=== PATIENT | male | born 1980 | race Caucasian/White ===

== ENCOUNTER 2020-10-04 17:26 | Emergency (ER) | payer SELFPAY ==
--- NOTE | 2020-10-04 17:51 | ED.EAR ---
HPI - Ear Problem General Chief complaint: Dental/Oral Stated complaint: ear pain Time Seen by Provider: 10/04/20 18:03 History of Present Illness HPI Narrative: patient presents with left sided ear pain or a bad tooth on his left side. patient denies any other complaints MD Complaint: ear pain Location: left ear Severity: mild Exacerbating factors: nothing Related Data Home Medications Medication Instructions Recorded Confirmed hydrocodone-acetaminophen 5 tablet PO PRN 10/04/20 10/04/20 quetiapine 100 mg PO DAILY 10/04/20 10/04/20 quetiapine 400 mg PO DAILY 10/04/20 10/04/20 tizanidine 4 mg PO HS 10/04/20 10/04/20 trazodone 50 mg PO HS 10/04/20 10/04/20 Allergies Allergy/AdvReac Type Severity Reaction Status Date / Time No Known Allergies Allergy Verified 10/04/20 17:43 Review of Systems Review of Systems: Narrative: CONSTITUTIONAL: Denies fever, chills, or sweats. EYES: Denies visual changes, redness, or discharge. ENT: Denies rhinorrhea, congestion, sore throat, or otalgia. CARDIOVASCULAR: Denies chest pain, palpitations, or edema. RESPIRATORY: Denies cough or dyspnea. GASTROINTESTINAL: Denies abdominal pain, nausea, vomiting, or diarrhea. GENITOURINARY: Denies dysuria or hematuria. SKIN: Denies rash or itching. MUSCULOSKELETAL: Denies back pain, joint pain, or myalgia. NEUROLOGIC: Denies headache, numbness, or weakness. PSYCHIATRIC: Denies anxiety or depression. Allergic/Immunologic: Comments: At time of signature, agree with nursing past medical, surgical, social and family history. There is no relevant family history pertinent to the presenting complaint PMFSH Social History Social History Gender identity (if verbalized by the patient): Male Exam Narrative: Exam Narrative: GENERAL: Well-appearing, well-nourished, and in no acute distress. HEAD: Normocephalic, atraumatic. EYES: PERRLA and EOMI. ENT: Nares clear, no rhinorrhea or epistaxis. Mucous membrane NO FEVER. NO JAW SWELLING. NO NECK SWELLING. NO LIMITATION WITH SPEAKING OR SWALLOWING. HAS A HISTORY OF DENTAL CARIES. HAS NOT SEEN A DENTIST RECENTLY. NECK: Supple. CHEST: Clear to auscultation. No respiratory distress. HEART: Regular rate and rhythm. No murmur heard. Normal peripheral pulses. ABDOMEN: Soft, nontender, nondistended, normal active bowel sounds. EXTREMITIES: Normal range of motion. No edema. SKIN: Warm, dry, no rash. NEURO: No focal deficits. Alert and oriented x3. [place] Coma Scale Eye Opening: Spontaneous 4 [place] Coma Scale Motor: Obeys Commands 6 [place] Coma Scale Verbal: Oriented 5 [place] Coma Scale Total 15 Const: General: no acute distress Orientation/consciousness: patient oriented x3 HENMT: Teeth and gingiva: other (broken tooth 17) Course Vital Signs Vital signs: Vital Signs Temperature 36.1 C L 10/04/20 17:52 Pulse Rate 100 10/04/20 17:52 Respiratory Rate 16 10/04/20 17:52 Blood Pressure 156/117 H 10/04/20 17:52 Pulse Oximetry 98 10/04/20 17:52 Temperature 36.1 C L 10/04/20 17:52 Pulse Rate 100 10/04/20 17:52 Respiratory Rate 16 10/04/20 17:52 Blood Pressure 156/117 H 10/04/20 17:52 Pulse Oximetry 98 10/04/20 17:52 Please SO schedule a followup visit with your personal physician for further evaluation and treatment. Including recheck and discussion of your blood pressure. If your symptoms persist, change or worsen significantly before you can contact your personal physician then please, without delay, go to the emergency department for further evaluation Patient states that he has a history of high blood pressure but has not been taking his medication for over the past year. Discussed signs and symptoms of elevated blood pressure enforced need to follow-up with primary care provider for further evaluation treatment 150/98 Medical Decision Making Vital Signs Vital Signs: Vital Signs Temperature 36.1 C L 10/04/20 17:52 Pulse Rate 100 10/04/20 17:52 Respirat
[2020-10-04 17:52] VITALS: BP 156/117; PULSE 100; RESP 16; TEMP 36.1; O2SAT 98
== END 2020-10-04 18:06 | disposition home or self-care (01) ==
PROVIDERS: Emergency Provider Nurse Practitioner Family; PCP Family Medicine
DX: K02.9 Dental caries, unspecified (principal); I10 Essential (primary) hypertension; F31.9 Bipolar disorder, unspecified
CPT/HCPCS: 99213; G0463

== ENCOUNTER 2025-04-12 08:58 | Emergency (ER) | payer OTHER, SELFPAY ==
[2025-04-12 09:04] VITALS: BP 150/103; PULSE 98; RESP 20; TEMP 36.9; O2SAT 100
--- NOTE | 2025-04-12 09:39 | ED.BACK ---
HPI - Back Pain/Injury General Chief Complaint: Back Pain/Injury Stated Complaint: Back Pain Time Seen by Provider: 04/12/25 09:15 Source: patient and RN notes reviewed Mode of arrival: ambulatory Limitations: no limitations History of Present Illness HPI Narrative: 44-year-old male patient presents Express Care complaining of right low back pain approximately 4 days. Patient reports a history of chronic back problems, he was raking leaves of his yd when he felt something pop in his right lower back followed by pain. Patient says the pain is worse with movement, recent 3/10 at rest, her rates it a 9/10 when nurse movement. Patient denies any radiating pain. Patient denies any numbness or tingling to his groin, loss of bowel or bladder function, leg weakness, or any other symptoms. Patient has been taking ibuprofen without relief. Related Data Home Medications ?Medication ?Instructions ?Recorded ?Confirmed ?Last Taken ?Type quetiapine 400 mg tablet,extended 400 mg PO DAILY 10/04/20 10/31/23 Unknown History release 24 hr trazodone 50 mg tablet 50 mg PO HS 10/04/20 10/31/23 Unknown History quetiapine 150 mg tablet,extended 150 mg PO QHS 11/11/20 10/31/23 Unknown History release 24 hr Allergies Allergy/AdvReac Type Severity Reaction Status Date / Time No Known Allergies Allergy Verified 04/12/25 09:19 Review of Systems Review of Systems: CONSTITUTIONAL: Denies fever, chills, or sweats. EYES: Denies visual changes, redness, or discharge. ENT: Denies rhinorrhea, congestion, sore throat, or otalgia. CARDIOVASCULAR: Denies chest pain, palpitations, or edema. RESPIRATORY: Denies cough or dyspnea. GASTROINTESTINAL: Denies abdominal pain, nausea, vomiting, or diarrhea. GENITOURINARY: Denies dysuria or hematuria. SKIN: Denies rash or itching. MUSCULOSKELETAL: Positive for back pain. Negative for joint pain, or myalgia. NEUROLOGIC: Denies headache, numbness, saddle anesthesia, loss of bowel or bladder function, or weakness. PSYCHIATRIC: Denies anxiety or depression. All other systems reviewed are negative, except as documented in HPI. [facility] Past Medical History Medical History HTN (hypertension), benign Chronic back pain Mood disorder Family History Family History Father Hypertension Family history of elevated blood lipids Social History Social History Smoking status: Current every day smoker Tobacco type: e-cigarettes/vaping Second hand tobacco smoke exposure: No Additional smoking assessment comments: currently vapes Alcohol intake: never Substance use: never Substance use type: does not use Lack of Transportation: No Lack of Food: Never True Current Housing: I Have Housing Concerned About Future Housing: No Difficulty Paying Gas/Electric Bills: No Difficulty Paying for Meds: No Currently Unemployed: No Education: Associate Degree Difficulty w/ Childcare or Family Care: No Living arrangements: with family Occupation/Education: occupation Gender identity (if verbalized by the patient): Male Agree to blood products: Yes Comments At the time of my signature, I reviewed and agree with the nursing past medical, surgical, social, and family history. There is no relevant family history pertinent to the patient complaint. Exam Narrative: GENERAL: This is a well-nourished, well-developed adult, in no apparent distress. They are non ill-appearing, nontoxic appearing. HEAD: normocephalic, atraumatic. EYES: Sclera clear/white. Conjunctiva normal. Vision is grossly intact. Extraocular movements intact EARS: External ears normal, Hearing grossly intact. NOSE: External nose normal THROAT: Mucous membranes moist, NECK: Neck supple, n CARDIOVASCULAR: Regular rate and rhythm RESPIRATORY: Respiratory rate normal, respiratory effort nonlabored, no respiratory distress SKIN: warm, Dry, intact with no suspicious lesions or rash, good texture and turgor. NEURO: awake, alert, and oriented to person, place and time. There were no obvious focal neurologic abnormalities. EXTREMITIES: No joint tenderness, effusion, or edema noted. BACK: Right lumbar double back operator to palpate. No CVA tenderness. No cervical, thoracic, lumbar point tenderness, crepitus, or step-offs. Course Course Emergency Course: Portions of this record may have been created with voice recognition software Level of Care: Express Care Visit Vital Signs Vital signs: Vital Signs Temperature 98.4 F 04/12/25 09:04 Pulse Rate 98 04/12/25 09:04 Respiratory Rate 20 04/12/25 09:04 Blood Pressure 150/103 H 04/12/25 09:04 Pulse Oximetry 100 04/12/25 09:04 Oxygen Delivery Room Air 04/12/25 09:04 Temperature 98.4 F 04/12/25 09:04 Pulse Rate 98 04/12/25 09:04 Respiratory Rate 20 04/12/25 09:04 Blood Pressure 150/103 H 04/12/25 09:04 Pulse Oximetry 100 04/12/25 09:04 Oxygen Delivery Room Air 04/12/25 09:04 Reviewed MDM - Back Pain/Injury MDM Narrative Medical decision making narrative: Patient likely has a lumbar strain. Will give him a course of prednisone along with a muscle relaxer. Discussed physical exam findings. Advised supportive measures and signs/symptoms to go to the ER. Pt is appropriate for outpt treatment and f/u. Differential Diagnosis Differential diagnosis: Likely lumbar radiculopathy, sciatica and strain of lumbar region Critical Care Time Critical Care Time Critical Care Time: No Discharge Plan Discharge Clinical Impression: Strain of lumbar region Qualifiers: Encounter type: initial encounter Qualified Code(s): S39.012A - Strain of muscle, fascia and tendon of lower back, initial encounter Patient Disposition: Home Condition: Stable Instructions: Low Back Strain (ED), Lower Back Exercises (ED) Additional Instructions: Take the muscle relaxer as directed. Do not drive or operate heavy machine, or work while taking the medication as it can make you drowsy. Use [id number] lidocaine patches as directed on the packaging. Take prednisone as directed. You may take ibuprofen 600 mg to 800 mg every 6-8 hours. Do not exceed more than 800 mg of ibuprofen per dose. Do not exceed more than 3200 mg ibuprofen in a day. You may take up to 1000 mg Tylenol every 6-8 hours. Do not exceed 1000 mg per dose, do exceed more than 4000 mg of Tylenol in a day. Please follow-up with your primary care provider if pain persist Rest. Avoid pushing, pulling, lifting --running or excessive walking-- or anything that worsens the symptoms You may try stretching your lower back or doing spinal decompression to help with symptoms. Go to the emergency department if you develop any numbness or tingling to your groin, weakness in your legs, or any loss of bowel or bladder function. Patient Language: Armenian Prescriptions: New prednisone 20 mg tablet 40 mg PO DAILY 5 Days Qty: 10 0RF methocarbamol 750 mg tablet 750 mg PO TID Qty: 12 0RF No Action trazodone 50 mg Tablet 50 mg PO HS quetiapine 400 mg tablet extended release 24 hr 400 mg PO DAILY quetiapine 150 mg tablet extended release 24 hr 150 mg PO QHS lisinopril-hydrochlorothiazide 10-12.5 mg tablet 1 tablet PO DAILY Qty: 90 1RF atenolol 100 mg tablet 100 mg PO DAILY Qty: 90 1RF omeprazole 20 mg capsule,delayed release(DR/EC) 20 mg PO DAILY Qty: 90 1RF Follow-up/Referrals: PHYSICIAN,TRAP OPERATOR [Primary Care Provider, Internal Medicine] Stand Alone Forms: Work/School Release IP Time of Disposition: 09:35
== END 2025-04-12 09:40 | disposition home or self-care (01) ==
DX: S39.012A Strain of muscle, fascia and tendon of lower back, initial encounter (principal); X50.3XXA Overexertion from repetitive movements, initial encounter; Y93.H1 Activity, digging, shoveling and raking; F17.290 Nicotine dependence, other tobacco product, uncomplicated; I10 Essential (primary) hypertension; F39 Unspecified mood [affective] disorder
CPT/HCPCS: 99213; G0463

== ENCOUNTER 2025-05-03 08:03 | Emergency (ER) | payer OTHER, SELFPAY ==
--- NOTE | ~2025-05-03 | XR_ITS ---
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 LLL COMPARISON: No comparisons available. Technique: 2 views obtained. Findings: Minimal left lower lobe infiltrate otherwise the lungs are clear. No pneumothorax. Heart is normal size. Mediastinal and hilar contours are within normal limits. Bony thorax no acute abnormality. Impression: Small left lower lobe pneumonia Reviewed, dictated and finalized at location P. [employer] EXCHANGE ADMINISTRATOR Impression: Small left lower lobe pneumonia
[2025-05-03 08:10] VITALS: BP 148/97; PULSE 78; RESP 20; TEMP 36.9; O2SAT 99
--- NOTE | 2025-05-03 08:11 | ECG_ITS ---
Test Date: 2025-05-03 08:18:10 Measurements Intervals [place] Rate: 74 P: 51 CO: 169 QRS: 1 QRSD: 94 T: 44 QT: 365 QTc: 407 Interpretive Statements SINUS RHYTHM BASELINE ARTIFACT- I, III, AVL, AVF, V6 NORMAL ECG No previous ECG available for comparison Electronically Signed On 05-03-2025 08:28:49 HR COORDINATOR by Berny Turpin D.O.
--- NOTE | 2025-05-03 08:20 | ED_ITS ---
HPI - Chest Pain General Chief Complaint: Chest Pain Stated Complaint: Chest Pain Time Seen by Provider: 05/03/25 08:20 Source: patient and RN notes reviewed Mode of arrival: ambulatory Limitations: no limitations History of Present Illness HPI narrative: 44-year-old male patient presents to the [facility] complaining chest pain that started 4 days ago. Patient said it started while he was at a cheerleading competition for his daughter. Patient said it occurred suddenly feels the left lower chest associated with shortness of breath. Patient says the pain is worse when he takes a deep breath or when he coughs. Patient denies any fevers, body aches, chills, nausea vomiting, diarrhea, difficulty breathing, abdominal pain, or any other symptoms. Patient reports a history of pneumothorax all on the left side he says. Patient said he never required a chest tube for it. Patient continues to vape. Patient denies any heart history. Patient does have a history of hypertension. Patient says 2 weeks ago he did have an upper respiratory infection and a cough has resolved since. Related Data Home Medications ?Medication ?Instructions ?Recorded ?Confirmed ?Last Taken ?Type quetiapine 400 mg tablet,extended 400 mg PO DAILY 09/2410/31/23 Unknown History release 24 hr trazodone 50 mg tablet 50 mg PO HS 10/04/20 4 Unknown History Allergies Allergy/AdvReac Type Severity Reaction Status Date / Time No Known Allergies Allergy Verified 05/03/25 08:26 Review of Systems Review of Systems: CONSTITUTIONAL: Denies fever, chills, or sweats. EYES: Denies visual changes, redness, or discharge. ENT: Denies rhinorrhea, congestion, sore throat, or otalgia. CARDIOVASCULAR: Positive for chest pain. Negative for dizziness, lightheadedness, Palpitations, or edema. RESPIRATORY: Denies cough. Positive for dyspnea and pain with inspiration. GASTROINTESTINAL: Denies abdominal pain, nausea, vomiting, or diarrhea. GENITOURINARY: Denies dysuria or hematuria. SKIN: Denies rash or itching. MUSCULOSKELETAL: Denies back pain, joint pain, or myalgia. NEUROLOGIC: Denies headache, numbness, or weakness. PSYCHIATRIC: Denies anxiety or depression. All other systems reviewed are negative, except as documented in HPI. [facility] Past Medical History Medical History HTN (hypertension), benign Chronic back pain Mood disorder Family History Family History Father Hypertension Family history of elevated blood lipids Social History Social History Smoking status: Current every day smoker Tobacco type: e-cigarettes/vaping Second hand tobacco smoke exposure: No Additional smoking assessment comments: currently vapes Alcohol intake: never Substance use: never Substance use type: does not use Lack of Transportation: No Lack of Food: Never True Current Housing: I Have Housing Concerned About Future Housing: No Difficulty Paying Gas/Electric Bills: No Difficulty Paying for Meds: No Currently Unemployed: No Education: Associate Degree Difficulty w/ Childcare or Family Care: No Living arrangements: with family Occupation/Education: occupation Gender identity (if verbalized by the patient): Male Agree to blood products: Yes Comments At the time of my signature, I reviewed and agree with the nursing past medical, surgical, social, and family history. There is no relevant family history pertinent to the patient complaint. Exam Narrative: GENERAL: This is a well-nourished, well-developed adult, in no apparent distress. They are non ill-appearing, nontoxic appearing. HEAD: normocephalic, atraumatic. EYES: Sclera clear/white. Conjunctiva normal. Vision is grossly intact. Extraocular movements intact EARS: External ears normal, Hearing grossly intact. NOSE: External nose normal THROAT: Mucous membranes moist, NECK: Neck supple, non-tender without lymphadenopathy, masses or thyromegaly. CARDIOVASCULAR: Regular rate and rhythm without murmurs, gallops, or rubs. RESPIRATORY: Left lower lobe diminished. No wheezes, rales, or rhonchi. Respiratory rate normal, respiratory effort nonlabored, no respiratory distress SKIN: warm, Dry, intact with no suspicious lesions or rash, good texture and turgor. NEURO: awake, alert, and oriented to person, place and time. There were no obvious focal neurologic abnormalities. EXTREMITIES: No joint tenderness, effusion, or edema noted. BACK: Nontender without deformity. Course Course Level of Care: Express Care Visit Vital Signs Vital signs: Vital Signs Temperature 98.4 F 05/03/25 08:10 Pulse Rate 78 05/03/25 08:10 Respiratory Rate 20 05/03/25 08:10 Blood Pressure 148/97 H 05/03/25 08:10 Pulse Oximetry 99 05/03/25 08:10 Oxygen Delivery Room Air 05/03/25 08:10 Temperature 98.4 F 05/03/25 08:10 Pulse Rate 78 05/03/25 08:10 Respiratory Rate 20 05/03/25 08:10 Blood Pressure 148/97 H 05/03/25 08:10 Pulse Oximetry 99 05/03/25 08:10 Oxygen Delivery Room Air 05/03/25 08:10 MDM MDM Narrative Medical decision making narrative: EKG sinus rhythm without ischemic findings, nonspecific T-wave changes. [place] heart score 1. Low suspicion for CAD. Given patient's history and exam findings will obtain chest x-ray. Chest x-ray reveals left lower lobe pneumonia, no pneumothorax or any other acute cardiopulmonary findings. Patient nontoxic appearing, no apparent distress, afebrile. Will send him home on doxycycline. Discussed physical exam findings. Advised supportive measures and signs/symptoms to go to the ER. Pt is appropriate for outpt treatment and f/u. Differential Diagnosis Differential Diagnosis: Pneumothorax, ACS, pneumonia, pleurisy, chest wall pain, stable angina Imaging Data Radiologist's impression: ITS Impressions Chest X-Ray 05/03/25 08:48 Impression: Small left lower lobe pneumonia ECG Data EKG #1: Attestation: I personally reviewed and interpreted this ECG as follows: ECG completion date: 05/03/25 ECG completion time: 08:18 Prior ECG tracings: not available for review Interpretation: non specific t wave changes, normal rate, sinus rhythm, no ectopy, no ST changes, normal QRS, normal QT and NL axis Critical Care Time Critical Care Time Critical Care Time: No Discharge Plan Discharge Clinical Impression: Pneumonia Qualifiers: Pneumonia type: due to unspecified organism Laterality: left Lung location: lower lobe of lung Qualified Code(s): J18.9 - Pneumonia, unspecified organism Patient Disposition: Home Condition: Stable Instructions: Antibiotic Form, Pneumonia (ED) Additional Instructions: Chest x-ray shows left lower lobe pneumonia. No other acute cardiopulmonary findings. Take antibiotics as directed until complete. eat small frequent meals. Get lots of rest and drink fluids. Alternate Tylenol and ibuprofen for pain/fever as needed. Follow instructions on the bottle. Call your Primary Care Doctor and make a follow-up appointment in 3 to 5 days. Go to the ER for worsening symptoms, chest pains, difficulty breathing, weakness, fevers, or any serious concerns. Patient Language: Azerbaijani Prescriptions: New doxycycline monohydrate 100 mg capsule 100 mg PO BID 5 Days Qty: 10 0RF No Action trazodone 50 mg Tablet 50 mg PO HS quetiapine 400 mg tablet extended release 24 hr 400 mg PO DAILY lisinopril-hydrochlorothiazide 10-12.5 mg tablet 1 tablet PO DAILY Qty: 90 1RF atenolol 100 mg tablet 100 mg PO DAILY Qty: 90 1RF omeprazole 20 mg capsule,delayed release(DR/EC) 20 mg PO DAILY Qty: 90 1RF Follow-up/Referrals: UNKNOWN,DOCTOR [Primary Care Provider] Time of Disposition: 09:00
== END 2025-05-03 09:00 | disposition home or self-care (01) ==
DX: J18.9 Pneumonia, unspecified organism (principal); F17.290 Nicotine dependence, other tobacco product, uncomplicated; I10 Essential (primary) hypertension
CPT/HCPCS: 71046; 93005; 99213; G0463